=== PATIENT | female | born 1990 | race Caucasian/White ===

== ENCOUNTER 2024-03-12 07:20 | Inpatient (IN) ==
[2024-03-12] MEDS ORDERED: fentaNYL 100 mcg/2 ml 50 MCG/ML VIAL IV SLOW PU PRN (08:11)
[2024-03-12] MEDS ORDERED: Ondansetron 4 mg VIAL 2 MG/ML 2 ml VIAL IV PRN (08:11)
[2024-03-12 08:37] LABS: ABS Basophils 0.1 10^3/uL (0.0-0.1); ABS Eosinophils 0.1 10^3/uL (0.0-0.5); ABS Lymphocytes 2.4 10^3/uL (1.0-4.8); ABS Monocytes 1.1 10^3/uL (0.0-0.9); ABS Neutrophils 7.6 10^3/uL (1.5-7.6); ABS Nucleated RBC 0.01 10^3/ul; Eosinophil % 0.8 %; Hematocrit 35.6 % (35-45); Hemoglobin 11.8 g/dL (11.5-14.3); Mean Corpuscular Hemoglobin 27.6 pg (27-33); Mean Corpuscular Hgb Conc 33.1 g/dL (31-36); Mean Corpuscular Volume 83.2 fL (80-97); Mean Platelet Volume 7.9 fL (7.5-11.2); Nucleated Red Blood Cells % 0.1 %/100WBC (0.0-0.8); Platelet Count 354 10^3/uL (150-450); Red Blood Count 4.28 10^6/uL (3.63-4.92); Red Cell Distribution Width 15.1 % (12-17); White Blood Count 11.3 10^3/uL (3.8-11.8)
[2024-03-12 09:11] LABS: Urine Benzodiazepine Screen None Detected (None Detect); Urine Cannabinoids Screen None Detected (None Detect); Urine Opiates Screen None Detected (None Detect)
[2024-03-12 09:32] LABS: Albumin 3.6 g/dL (3.2-5.2); Albumin/Globulin Ratio 1.4 (1-3); Calcium 8.8 mg/dL (8.6-10.3); Creatinine, Serum 0.56 mg/dL (0.51-0.95); Globulin 2.5 g/dL (2-4); Potassium 4.1 mmol/L (3.5-5.0); Total Bilirubin 0.3 mg/dL (0.2-1.0); Total Protein 6.1 g/dL (6.4-8.9); eGFR CKD-EPI 124.3 (>60)
[2024-03-12] MEDS: Buffered Lidocaine 1% SYRIN 1 ml INTRADERM ONE (12:16)
[2024-03-12] MEDS ORDERED: Glycerin ADULT 2.4 gm SUPP PR PRN (12:53)
[2024-03-12] MEDS ORDERED: Polyethylene Glycol 3350 17 GM PACKET PO PRN (12:53)
[2024-03-12] MEDS: Lactated Ringers 1000 ml BAG 1,000 ML IV ONE (13:02)
[2024-03-12] MEDS: Dibucaine 1% OINT 28.35 GM TUBE PR PRN (13:09)
[2024-03-12] MEDS: Witch Hazel PAD JAR TOPICAL PRN (13:09)
[2024-03-12] MEDS: Lidocaine 1% VIAL 10 MG/ML 30 ML VIAL INJ PRN (13:49)
[2024-03-12] MEDS: Lidocaine 2% JELLY 6 ML Topical TOPICAL ONE (18:40)
[2024-03-12] MEDS: Lactated Ringers 1000 ml BAG 1,000 ML IV SCH (19:10)
[2024-03-12] MEDS: Oxytocin in LR 20,000 MILLI.UNIT/1,000 ML BAG IV ONE (19:11)
[2024-03-13 06:12] LABS: ABS Eosinophils 0.1 10^3/uL (0.0-0.5); ABS Lymphocytes 2.1 10^3/uL (1.0-4.8); ABS Monocytes 1.4 10^3/uL (0.0-0.9); ABS Neutrophils 11.2 10^3/uL (1.5-7.6); Eosinophil % 0.5 %; Hematocrit 32.1 % (35-45); Hemoglobin 10.5 g/dL (11.5-14.3); Lymphocyte % 14.4 %; Mean Corpuscular Hemoglobin 27.6 pg (27-33); Mean Corpuscular Hgb Conc 32.6 g/dL (31-36); Mean Corpuscular Volume 84.4 fL (80-97); Mean Platelet Volume 7.9 fL (7.5-11.2); Platelet Count 297 10^3/uL (150-450); Red Cell Distribution Width 15.5 % (12-17); White Blood Count 14.9 10^3/uL (3.8-11.8)
[2024-03-13] MEDS: RHO D Immune Globulin (HUMAN) 300 MCG = 1,500 I.U. INJ IM PRN (15:53)
[2024-03-14 09:21] VITALS: BP 113/78
== END 2024-03-14 15:24 | disposition home or self-care (01) | DRG 768 ==
LOC: MCHOBOUT 07:20 → MCHOB 07:38